=== PATIENT | male | born 1950 | race Caucasian/White ===

== ENCOUNTER → 2018-02-18 | Outpatient (CLI) | payer MEDICARE, OTHER | LOC: M OUTALCOH 08:11 | DX: Z13.9 Encounter for screening, unspecified (principal); F10.10 Alcohol abuse, uncomplicated | CPT/HCPCS: H0001 ==

== ENCOUNTER → 2020-07-19 | Outpatient (CLI) | payer MEDICARE, OTHER ==
--- NOTE | 2020-07-19 15:34 | REP ---
INDICATION: CONTUSION OF RIGHT SHOULDER. COMPARISON: None TECHNIQUE: Two views FINDINGS: There is a markedly comminuted distal clavicular fracture with abnormal widening of the acromioclavicular joint. The fracture is impacted. The glenohumeral relationship is within normal limits. I cannot rule out the possibility of a concomitant fracture of the base of the acromion process. IMPRESSION: Fracture and potential fracture as described above. <Electronically signed by Vitaliy Lorenzo > 07/19/20 [id number]
--- NOTE | 2020-07-19 16:18 | REP ---
INDICATION: CONTUSION OF RIGHT SHOULDER. COMPARISON: None. TECHNIQUE: Three views of the shoulder were performed. FINDINGS: There is a comminuted distal clavicle fracture which is impacted and causing AC joint widening. The glenohumeral relationship is within normal limits. There are no additional fractures identified. Only 2 AP views were obtained. There is no scapular Y-view or axillary view. This causes exam limitations.. IMPRESSION: Distal clavicular fracture and related findings as described above. Exam limitations as described above. <Electronically signed by Vitaliy Lorenzo > 07/19/20 [id number]
== END ==
LOC: M WUC 14:55
PROVIDERS: ATTEND Physician Assistant
DX: S42.034A Nondisplaced fracture of lateral end of right clavicle, initial encounter for closed fracture (principal); X58.XXXA Exposure to other specified factors, initial encounter; Y92.9 Unspecified place or not applicable

== ENCOUNTER → 2022-05-19 | Outpatient (CLI) | payer MEDICARE ==
[2022-05-19 15:17] LABS: HEMATOCRIT 57.3 % (42.0-52.0); HEMOGLOBIN 19.1 g/dl (13.5-17.5); MEAN CORPUSCULAR HGB CONC 33.3 g/dl (32.0-36.5); MEAN CORPUSCULAR VOLUME 96.1 fl (80.0-96.0); PLATELET COUNT, AUTOMATED 273 10^3/uL (150-450); RED BLOOD COUNT 5.96 10^6/uL (4.30-6.10); WHITE BLOOD COUNT 8.6 10^3/uL (4.0-10.0)
[2022-05-19 15:45] LABS: ATYPICAL LYMPH 6 % (0-5); CK-MB VALUE MASS 6.8 NG/ML (<3.6); LYMPHOCYTES 6 % (16-44); MB/CK RELATIVE INDEX 3.49 (< OR =4); METAMYELOCYTES 2 % (0-0); MONOCYTES 7 % (0-5); NEUTROPHILS 65 % (28-66)
[2022-05-19 15:46] LABS: PLATELET ESTIMATE NORMAL (NORMAL)
[2022-05-19 15:59] LABS: ALBUMIN 3.6 GM/DL (3.2-5.2); BILIRUBIN,TOTAL 1.1 MG/DL (0.2-1.0); CALCIUM LEVEL 9.6 MG/DL (8.8-10.2); CREATININE FOR GFR 2.42 MG/DL (0.70-1.30); GLOMERULAR FILTRATION RATE 28.2 (>42); POTASSIUM SERUM 3.8 MEQ/L (3.5-5.1); TOTAL PROTEIN 6.5 GM/DL (6.4-8.2)
== END ==
LOC: M WUC 13:39
PROVIDERS: ATTEND Student in an Organized Health Care Education/Training Program
DX: R06.02 Shortness of breath (principal); R10.84 Generalized abdominal pain

== ENCOUNTER → 2022-06-01 | Outpatient (REF) | LOC: M LAB 09:16 ==